=== PATIENT | female | born 1955 | race African-American/Black ===

== ENCOUNTER 2016-09-20 22:32 | Inpatient (IN) | payer MEDICARE, MEDICAID ==
[~2016-09-20] VITALS: Ht 180.3 cm; Wt 95.3 kg
[~2016-09-20 22:32] MED LIST: AFRIN15 ML NASAL; AMLODIPINE BESY10 MG ORAL; AMLODIPINE BESYL5 MG ORAL; ASPIR 8181 MG ORAL; BENAZEPRIL HCL40 MG ORAL; CALCIUM500 M3 PO; CATAPRES0.1 MG ORAL; CATAPRES0.2 MG ORAL; CIPROFLOXACIN500 M2 ORAL; GABAPENTIN300 MG ORAL; GLIMEPIRIDE1 MG ORAL; GLIMEPIRIDE2 MG ORAL; GLIMEPIRIDE4 MG ORAL; HYDROCODON-ACE1 EA13 ORAL; KEFLEX500 MG ORAL; LORATADINE10 M2 PO; METFORMIN HCL1000 M1 ORAL; NORCO 10/3251 EA ORAL; NORMODYNE100 MG ORAL; OXYCONTIN10 MG ORAL; OYSCO 500+D TA1 EAC1 PO; PANTOPRAZOLE SO20 MG ORAL; PERCOCET 10-321 EACH ORAL; PERCOCET 5-3251 EACH ORAL; PERCOCET1 TAB ORAL; PHENAZOPYRIDIN200 MG ORAL; SIMVASTATIN20 MG ORAL; SIMVASTATIN40 MG ORAL; SOMA350 MG PO; VALIUM5 MG ORAL; ZOFRAN ODT4 MG ORAL
[2016-09-20 22:48] VITALS: BP 163/79
[2016-09-21] VITALS (7 sets, daily range): BP systolic 100–134; BP diastolic 57–97
[2016-09-21 00:14] LABS: APPEARANCE,URINE CLEAR; KETONES,URINE NEGATIVE (NEGATIVE); LEUKOCYTE ESTERASE ,URINE NEGATIVE (NEGATIVE); NITRITE,URINE NEGATIVE (NEGATIVE); PH,URINE 7 (4.5-8.0); PROTEIN,URINE NEGATIVE (NEGATIVE); UROBILINOGEN,URINE NORMAL MG/DL (0.0-1.0)
[2016-09-21 00:15] LABS: BASOPHILS % (AUTO) 2.8 % (0.0-2.0); EOSINOPHILS % (AUTO) 1.7 % (0.0-3.0); LYMPHOCYTES % (AUTO) 47.1 % (20.0-45.0); MEAN CORPUSCULAR HEMOGLOBIN 30.3 PG (27.0-31.0); MEAN CORPUSCULAR HGB CONC 31.7 G/DL (32.0-36.0); MEAN CORPUSCULAR VOLUME 95 FL (80-99); MONOCYTES % (AUTO) 12.7 % (1.0-10.0); NEUTROPHILS % (AUTO) 35.8 % (45.0-75.0); PLATELET COUNT 223 K/UL (150-450); RED BLOOD COUNT 3.69 M/UL (4.20-5.40); RED CELL DISTRIBUTION WIDTH 17.1 % (11.6-14.8); WHITE BLOOD COUNT 4.4 K/UL (4.8-10.8)
[2016-09-21] MEDS ORDERED: Morphine Sulfate 4mg/ml Inj IVP ONE (00:15)
[2016-09-21 00:30] LABS: TROPONIN I < 0.30 ng/mL (<=0.30)
[2016-09-21 00:34] LABS: ALANINE AMINOTRANSFERASE 51 U/L (3-33); ALBUMIN/GLOBULIN RATIO 1.2 (1.0-2.7); ANION GAP 15 (5-15); ASPARTATE AMINO TRANSFERASE 29 U/L (5-40); CALCIUM 9.1 mg/dL (8.6-10.2); CARBON DIOXIDE 25 mEQ/L (20-30); CHLORIDE 100 mEQ/L (98-107); CREATININE 0.9 mg/dL (0.5-0.9); GLOMERULAR FILTRATION RATE > 60 mL/min (>60); HEMOLYSIS 16; POTASSIUM 3.8 mEQ/L (3.4-4.9); SODIUM 140 mEQ/L (135-145); TOTAL PROTEIN 7.5 g/dL (6.6-8.7)
[2016-09-21 00:45] LABS: CKMB < 1.5 ng/mL (< 3.8)
--- NOTE | 2016-09-21 03:34 | Emergency Room Report ---
History of Present Illness General Chief Complaint: Hypertension Source: Patient Present Illness HPI 61-year-old female presents to ED for evaluation. Patient states her blood pressure is high she is complaining of shortness of breath. Denies any chest pain. No aggravating or relieving factors. States symptoms started earlier today. States her PMD is Dr. Burnett. Denies fevers or chills or cough. Initially noted a headache but denies any headache at this time. Denies sick contacts or recent travel. Denies any other associated symptoms Allergies: Coded Allergies: No Known Allergies (Unverified , 01/02/13) Patient History Past Medical History: DM, HTN Past Surgical History: none Pertinent Family History: none Social History: Denies: alcohol use, drug use, smoking Now: No Immunizations: UTD Reviewed Nursing Documentation: PMH: Agreed, PSxH: Agreed Nursing Documentation-PMH Past Medical History: No History, Except For Hx Cardiac Problems: Yes Hx Hypertension: Yes Hx Pacemaker: No Hx Asthma: No Hx COPD: No Hx Diabetes: Yes Hx Cancer: No Hx Gastrointestinal Problems: Yes Hx Neurological Problems: No Hx Cerebrovascular Accident: No Hx Seizures: No Hx Vertigo: Yes Hx Dizziness: Yes Hx Syncope: Yes Hx Headaches: Yes Hx Numbness: Yes Hx Weakness: Yes Hx Fatigue: Yes Review of Systems All Other Systems: negative except mentioned in HPI Physical Exam Vital Signs Date Time Temp Pulse Resp B/P Pulse Ox O2 Delivery O2 Flow Rate FiO2 09/20/16 22:37 98.2 91 15 163/79 98 Room Air Sp02 EP Interpretation: reviewed, normal General Appearance: no apparent distress, alert, GCS 15, non-toxic Head: normocephalic Eyes: bilateral eye PERRL, bilateral eye normal inspection ENT: normal ENT inspection Neck: normal inspection Respiratory: chest non-tender, normal breath sounds, crackles, speaking full sentences Cardiovascular #1: regular rate, rhythm, no edema Gastrointestinal: normal bowel sounds, non tender, soft, non-distended, no guarding, no rebound Rectal: deferred Genitourinary: no CVA tenderness Musculoskeletal: normal inspection Neurologic: alert, oriented x3, responsive, motor strength/tone normal, sensory intact, speech normal Psychiatric: normal inspection Skin: normal inspection Lymphatic: normal inspection Medical Decision Making Diagnostic Impression: Primary Impression: Hypertensive urgency Additional Impressions: Pancreatic mass Pleural effusion ER Course Hospital Course 61-year-old female presents to ED complaining of shortness of breath, elevated BP Differential diagnoses include: TN/unstable angina, contusion, muscle strain, PTX, rib fracture Clinical course Patient placed on stretcher. on concrete floor installer. After initial history and physical I ordered labs, EKG, chest x-ray labs reviewed- no leukocytosis, hb/hct stable, electrolytes ok, trop negative Chest x-ray- no acute process discussed case with PMD Dr Burnett; patient has history of malignancy - need to r/ o PE bilateral duplex - no DVT CTA Chest - bilateral pleural effusions, no PE, pancreatic mass noted on reassessment BP imrproved Case discussed with Dr. Burnett and he agreed to accept the patient to his service for further care and support I. I feel this is a highly complex case requiring extensive working including EKG/Rhythm strip, Xray/CT/US, Blood/urine lab work, repeat exams while in ED, and administration of strong opiates/narcotics for pain control, admission to hospital or close patient follow up. Diagnosis - hypertensive urgency, pancreatic mass, pleural effusion admitted to telemetry in serious condition Labs Test 09/20/16 23:40 09/20/16 23:50 White Blood Count 4.4 K/UL (4.8-10.8) Red Blood Count 3.69 M/UL (4.20-5.40) Hemoglobin 11.2 G/DL (12.0-16.0) Hematocrit 35.2 % (37.0-47.0) Mean Corpuscular Volume 95 FL (80-99) Mean Corpuscular Hemoglobin 30.3 PG (27.0-31.0) Mean Corpuscular Hemoglobin Concent 31.7 G/DL (32.0-36.0) Red Cell Distribution Width 17.1 % (11.6-14.8) Platelet Count 223 K/UL (150-450) Mean Platelet Volume 7.0 FL (6.5-10.1) Neutrophils (%) (Auto) 35.8 % (45.0-75.0) Lymphocytes (%) (Auto) 47.1 % (20.0-45.0) Monocytes (%) (Auto) 12.7 % (1.0-10.0) Eosinophils (%) (Auto) 1.7 % (0.0-3.0) Basophils (%) (Auto) 2.8 % (0.0-2.0) Sodium Level 140 mEQ/L (135-145) Potassium Level 3.8 mEQ/L (3.4-4.9) Chloride Level 100 mEQ/L (98-107) Carbon Dioxide Level 25 mEQ/L (20-30) Anion Gap 15 (5-15) Blood Urea Nitrogen 13 mg/dL (7-23) Creatinine 0.9 mg/dL (0.5-0.9) Estimat Glomerular Filtration Rate > 60 mL/min (>60) Glucose Level 162 mg/dL (74-106) Lactic Acid Level 1.40 mmol/L (0.66-2.22) Calcium Level 9.1 mg/dL (8.6-10.2) Total Bilirubin 0.4 mg/dL (0.0-1.2) Aspartate Amino Transf (AST/SGOT) 29 U/L (5-40) Alanine Aminotransferase (ALT/SGPT) 51 U/L (3-33) Alkaline Phosphatase 124 U/L (35-104) Total Creatine Kinase 94 U/L (26-140) Creatine Kinase MB < 1.5 ng/mL (< 3.8) Creatine Kinase MB Relative Index Troponin I < 0.30 ng/mL (<=0.30) Pro-B-Type Natriuretic Peptide 81 pg/mL (0-125) Total Protein 7.5 g/dL (6.6-8.7) Albumin 4.1 g/dL (3.5-5.2) Globulin 3.4 g/dL Albumin/Globulin Ratio 1.2 (1.0-2.7) Urine Color Pale yellow Urine Appearance Clear Urine pH 7 (4.5-8.0) Urine Specific [place] 1.005 (1.005-1.035) Urine Protein Negative (NEGATIVE) Urine Glucose (UA) Negative (NEGATIVE) Urine Ketones Negative (NEGATIVE) Urine Occult Blood Negative (NEGATIVE) Urine Nitrite Negative (NEGATIVE) Urine Bilirubin Negative (NEGATIVE) Urine Urobilinogen Normal MG/DL (0.0-1.0) Urine Leukocyte Esterase Negative (NEGATIVE) EKG Diagnostic Results Rate: normal Rhythm: NSR ST Segments: no acute changes ASA given to the pt in ED: No Rhythm Strip Diag. Results EP Interpretation: yes Rhythm: NSR, no PVC's, no ectopy Chest X-Ray Diagnostic Results EP Interpretation: Yes Findings: no consolidation, no pneumothorax, no acute cardiopulmonary disease, other - L sided effusion Number of Views: 1 CT/MRI/US Diagnostic Results CT/MRI/US Diagnostic Results : Imaging Test Ordered: CTA Chest. duplex bilateral LE Impression CTA Chest - pancreatic mass. no PE. pleural effusion duplex b/l LE - no DVT Last Vital Signs Date Time Temp Pulse Resp B/P Pulse Ox O2 Delivery O2 Flow Rate FiO2 09/21/16 01:39 98.2 75 20 132/76 99 Room Air Status: improved Disposition: ADMITTED INPATIENT Condition: Serious Referrals: MARY BURNETT (PCP) ANNIE HARDIN M.D. Sep 21, 2016 03:34
[2016-09-21] MEDS ORDERED: Norco 10mg/325mg tab ORAL PRN (04:15)
[2016-09-21] MEDS ORDERED: Prochlorperazine 10mg tab ORAL PRN (04:15)
[2016-09-21] MEDS: Glimepiride 4mg tab ORAL SCH (06:33)
[2016-09-21] MEDS: NovoLOG Insulin Flexpen SUBQ SCH ×4 (06:35→20:33)
[2016-09-21] MEDS: metFORMIN 500mg tab ORAL SCH ×2 (09:01→17:36)
[2016-09-21] MEDS: Aspirin Baby 81mg ORAL SCH (09:02)
--- NOTE | 2016-09-21 09:02 | Diagnostic Imaging Report ---
Indication: Chest pain Technique: Continuous helical transaxial imaging of the chest was obtained from the thoracic inlet to the upper abdomen during rapid intravenous contrast administration. Arterial phase of enhancement obtained. Coronal 2-D reformats were also obtained and maximum intensity projection images in multiple planes. Study obtained in a Siemens sensation [address] Total Dose length Product (DLP): And [address] Dose Index Volume (CTDIvol): 18, 51, 32 mGy Comparison: None Findings: The pulmonary artery is reasonably opacified. There is no filling defect to indicate pulmonary embolus. Aorta is unremarkable. No abnormal fluid collections are seen within the chest. Slight heterogeneity of the left thyroid lobe likely due to a small underlying hypodense lesion noted. Correlation with ultrasound suggested. Partially imaged lower cervical anterior fusion hardware noted. Axilla. Clear. There is mild posterior basilar atelectasis present. There is no consolidation within the lungs. The visualized part of the upper abdomen demonstrates scarring of the upper pole the right kidney. Cholecystectomy clips are present. There is dilatation of the visualized portion of the main pancreatic duct. Please refer to previous workup which included the MRI 06/30/16. Impression: No evidence of pulmonary embolus. Mild posterior basilar atelectasis Dilated main pancreatic duct incompletely assessed on this study. Please refer to prior MRI workup. Status post cholecystectomy Scarring of the visualized portion of the right kidney. Heterogeneous thyroid gland with suggestion of a small lesion in the left thyroid lobe. Correlation with ultrasound suggested. Lower cervical spine fusion. [facility] has communicated the preliminary results to the Emergency Department. Their findings are largely concordant with this report. The CT scanner at [facility] is accredited by the [employer] and the scans are performed using protocols designed to limit radiation exposure to as low as reasonably achievable to attain images of sufficient resolution adequate for diagnostic evaluation.
[2016-09-21] MEDS: Calcium Carbonate 500mg w/Vit D 200iu tab ORAL SCH (09:03)
[2016-09-21] MEDS: Heparin 5000 units/ml inj SUBQ SCH ×2 (09:04→20:36)
[2016-09-21] MEDS: Morphine Sulfate 4mg/ml Inj IVP PRN (09:17)
--- NOTE | 2016-09-21 10:51 | Diagnostic Imaging Report ---
Indication: Shortness of breath Comparison: 08/17/14 A single view chest radiograph was obtained. Findings: No definite infiltrate or pulmonary vascular congestion identified. The heart is enlarged. The aorta is mildly enlarged consistent with atherosclerotic vascular disease. The bones are osteopenic. Impression: No acute disease
[2016-09-21 12:24] LABS: TROPONIN I < 0.30 ng/mL (<=0.30)
--- NOTE | 2016-09-21 14:13 | History and Physical ---
History of Present Illness General Date patient seen: Sep 21, 2016 Time patient seen: 14:10 Reason for Hospitalization: Hypertension Present Illness HPI thi sis an unfortuante femal eiwht gebmyy2p of hypertension panceraticv cancer on chemo whopresented with sob and hypertension] wa saddmmited fo rhypertensive emergency/urgency\no feev er no chills Allergies: Coded Allergies: No Known Allergies (Unverified , 01/02/13) Medication History Scheduled Amlodipine Besylate* (Amlodipine Besylate*), 5 MG ORAL DAILY, (Reported) Aspirin* (Aspir 81*), 81 MG ORAL DAILY, (Reported) Benazepril Hcl* (Benazepril Hcl*), 40 MG ORAL DAILY, (Reported) Calcium Carbonate/Vitamin D3 ([place] 500+D Tablet), 1 EACH PO DAILY, (Reported) Carisoprodol* (Soma*), 350 MG PO TID, (Reported) Glimepiride* (Glimepiride*), 4 MG ORAL DAILY, (Reported) Labetalol HCl (Labetalol HCl), 100 MG ORAL EVERY 12 HOURS, (Reported) Metformin Hcl* (Metformin Hcl*), 1,000 MG ORAL BID, (Reported) Pantoprazole (Pantoprazole), 20 MG ORAL EVERY 12 HOURS, (Reported) Simvastatin (Zocor), 40 MG ORAL BEDTIME, (Reported) Scheduled PRN Clonidine Hcl* (Catapres*), 0.1 MG ORAL Q6HR PRN for For High Blood Pressure, ( Reported) Hydrocodone Bit/Acetaminophen 10-325* (Hydrocodon-Acetaminophn 10-325*), 1 TAB ORAL Q6H PRN for For Pain, (Reported) Patient History Healthcare decision maker Resuscitation status Full Code Advanced Directive on File Past Medical/Surgical History Past Medical/Surgical History: (1) Pancreas cancer (2) Back pain (3) Hypertensive urgency Review of Systems Constitutional: Reports: no symptoms Eye: Reports: no symptoms Cardiovascular: Reports: no symptoms Musculoskeletal: Reports: other - polyartrhralgia Neurological: Reports: no symptoms Endocrine: Reports: no symptoms Physical Exam General Appearance: WD/WN HEENT: normocephalic, atraumatic Neck: other - nojvd Respiratory/Chest: lungs clear Cardiovascular/Chest: no JVD Abdomen: non tender, soft Extremities: other - no clubbing Last 24 Hour Vital Signs Date Time Temp Pulse Resp B/P Pulse Ox O2 Delivery O2 Flow Rate FiO2 09/21/16 11:36 97.2 69 18 122/78 100 Nasal Cannula 2.0 09/21/16 09:47 96.1 09/21/16 09:47 96.1 09/21/16 09:17 75 126/59 09/21/16 09:03 75 126/59 09/21/16 09:02 126/59 09/21/16 09:00 66 09/21/16 08:10 96.1 75 18 122/84 100 Nasal Cannula 2.0 09/21/16 04:30 97.3 73 20 134/97 100 Room Air 09/21/16 04:00 69 09/21/16 01:39 98.2 75 20 132/76 99 Room Air 09/21/16 01:00 75 20 132/76 99 Room Air 09/21/16 00:33 98.2 09/21/16 00:00 78 21 129/93 100 Room Air 09/20/16 22:48 91 15 Room Air 09/20/16 22:48 98.2 91 15 163/79 98 Room Air 09/20/16 22:37 98.2 91 15 163/79 98 Room Air Intake and Output 09/20/16 09/21/16 19:00 07:00 Intake Total 300 ml Balance 300 ml Intake Oral 300 ml # Voids 1 Laboratory Tests Test 09/20/16 23:40 09/20/16 23:50 09/21/16 12:00 White Blood Count 4.4 K/UL (4.8-10.8) L Red Blood Count 3.69 M/UL (4.20-5.40) L Hemoglobin 11.2 G/DL (12.0-16.0) L Hematocrit 35.2 % (37.0-47.0) L Mean Corpuscular Volume 95 FL (80-99) Mean Corpuscular Hemoglobin 30.3 PG (27.0-31.0) Mean Corpuscular Hemoglobin Concent 31.7 G/DL (32.0-36.0) L Red Cell Distribution Width 17.1 % (11.6-14.8) H Platelet Count 223 K/UL (150-450) Mean Platelet Volume 7.0 FL (6.5-10.1) Neutrophils (%) (Auto) 35.8 % (45.0-75.0) L Lymphocytes (%) (Auto) 47.1 % (20.0-45.0) H Monocytes (%) (Auto) 12.7 % (1.0-10.0) H Eosinophils (%) (Auto) 1.7 % (0.0-3.0) Basophils (%) (Auto) 2.8 % (0.0-2.0) H Sodium Level 140 mEQ/L (135-145) Potassium Level 3.8 mEQ/L (3.4-4.9) Chloride Level 100 mEQ/L (98-107) Carbon Dioxide Level 25 mEQ/L (20-30) Anion Gap 15 (5-15) Blood Urea Nitrogen 13 mg/dL (7-23) Creatinine 0.9 mg/dL (0.5-0.9) Estimat Glomerular Filtration Rate > 60 mL/min (>60) Glucose Level 162 mg/dL (74-106) H Lactic Acid Level 1.40 mmol/L (0.66-2.22) Calcium Level 9.1 mg/dL (8.6-10.2) Total Bilirubin 0.4 mg/dL (0.0-1.2) Aspartate Amino Transf (AST/SGOT) 29 U/L (5-40) Alanine Aminotransferase (ALT/SGPT) 51 U/L (3-33) H Alkaline Phosphatase 124 U/L (35-104) H Total Creatine Kinase 94 U/L (26-140) Creatine Kinase MB < 1.5 ng/mL (< 3.8) Creatine Kinase MB Relative Index Troponin I < 0.30 ng/mL (<=0.30) < 0.30 ng/mL (<=0.30) Pro-B-Type Natriuretic Peptide 81 pg/mL (0-125) Total Protein 7.5 g/dL (6.6-8.7) Albumin 4.1 g/dL (3.5-5.2) Globulin 3.4 g/dL Albumin/Globulin Ratio 1.2 (1.0-2.7) Urine Color Pale yellow Urine Appearance Clear Urine pH 7 (4.5-8.0) Urine Specific [place] 1.005 (1.005-1.035) Urine Protein Negative (NEGATIVE) Urine Glucose (UA) Negative (NEGATIVE) Urine Ketones Negative (NEGATIVE) Urine Occult Blood Negative (NEGATIVE) Urine Nitrite Negative (NEGATIVE) Urine Bilirubin Negative (NEGATIVE) Urine Urobilinogen Normal MG/DL (0.0-1.0) Urine Leukocyte Esterase Negative (NEGATIVE) Height (Feet): 5 Height (Inches): 11.00 Weight (Pounds): 210 Medications Current Medications Medications (Trade) Dose Ordered Sig/Mervin Route PRN Reason Start Time Stop Time Status Last Admin Dose Admin Acetaminophen (Tylenol) 650 mg Q6H PRN ORAL Mild Pain/Temp > 100.5 09/21/16 04:15 10/21/16 04:14 Acetaminophen/ Hydrocodone Bitart (Arley 10/325) 1 ea Q6H PRN ORAL moderate pain 4-6 09/21/16 04:15 09/28/16 04:14 Amlodipine Besylate (Norvasc) 5 mg DAILY ORAL 09/21/16 09:00 10/21/16 08:59 09/21/16 09:17 Aspirin (ASA) 81 mg DAILY ORAL 09/21/16 09:00 10/21/16 08:59 09/21/16 09:02 Atorvastatin Calcium (Lipitor) 20 mg BEDTIME ORAL 09/21/16 21:00 10/21/16 20:59 Benazepril HCl (Lotensin) 40 mg DAILY ORAL 09/21/16 09:00 10/21/16 08:59 09/21/16 09:02 Calcium Carbonate (OsCal D) 1 tab DAILY ORAL 09/21/16 09:00 10/21/16 08:59 09/21/16 09:03 Carisoprodol (Soma) 350 mg THREE TIMES A DAY ORAL 09/21/16 09:00 10/21/16 08:59 09/21/16 13:31 Clonidine HCl (Catapres) 0.1 mg Q6H PRN ORAL SBP greater than 160 09/21/16 04:15 10/21/16 04:14 Dextrose (Dextrose 50%) STAT PRN IV Hypoglycemia 09/21/16 04:15 10/21/16 04:14 Glimepiride (Amaryl) 4 mg ACBREAKFAST ORAL 09/21/16 06:30 10/21/16 06:29 09/21/16 06:33 Heparin Sodium (Porcine) (Heparin 5000 units/ml) 5,000 units EVERY 12 HOURS SUBQ 09/21/16 09:00 10/21/16 08:59 09/21/16 09:04 Insulin Aspart (NovoLOG) BEFORE MEALS AND HS SUBQ 09/21/16 06:30 10/21/16 06:29 09/21/16 11:33 Labetalol HCl (Normodyne) 100 mg Q12HR ORAL 09/21/16 09:00 10/21/16 08:59 09/21/16 09:03 Metformin HCl (Glucophage) 1,000 mg BID ORAL 09/21/16 09:00 10/21/16 08:59 09/21/16 09:01 Morphine Sulfate (Morphine Sulfate) 4 mg Q4H PRN IVP Severe Pain (Pain Scale 7-10) 09/21/16 04:15 09/28/16 04:14 09/21/16 09:17 Pantoprazole (Protonix) 40 mg EVERY 12 HOURS ORAL 09/21/16 09:00 10/21/16 08:59 09/21/16 09:05 Prochlorperazine (Compazine) 10 mg TID PRN ORAL Nausea & Vomiting 09/21/16 04:15 10/21/16 04:14 Assessment/Plan Status Narrative hypertensicve urgency better [pancreatica cancer anemia deg disc disease oa knee Assessment/Plan control bnp monitroor for 24 hours meds reviewed labd sdioscussed ahs a borderline diabetes will monnitor doing better MARY SERNA Sep 21, 2016 14:13
[2016-09-21] MEDS ORDERED: DuoNeb 0.5-3(2.5)mg/3ml neb HHN PRN (19:15)
--- NOTE | 2016-09-21 19:34 | Consultation ---
Consult Note Assessment/Plan [id number] MADISON BYRD M.D. Sep 21, 2016 19:34
[2016-09-21] MEDS ORDERED: guaiFENesin 100mg/5ml Liq ud ORAL PRN (19:45)
[2016-09-21] MEDS ORDERED: Atorvastatin 20mg tab ORAL SCH (21:00)
[2016-09-21] MEDS: guaiFENesin 600mg tab ORAL SCH (22:00)
[2016-09-22 00:10] VITALS: BP 105/71
[2016-09-22 04:17] VITALS: BP 116/72
--- NOTE | 2016-09-22 04:37 | Consultation ---
DATE OF CONSULTATION: 09/21/2016 PULMONARY CONSULTATION REFERRING PHYSICIAN: Mike Burnett M.D. REASON FOR CONSULTATION: Cough and shortness of breath. HISTORY OF PRESENT ILLNESS: The patient is a 61-year-old female with a history of locally advanced pancreatic cancer, hypertension, hyperlipidemia, diabetes, and GERD, who presented to the ER with 2 to 3 days of cough, congestion, rhinorrhea, and shortness of breath. In the ER, she had chest x-ray initially done, which was within normal limits. Subsequently, she had a duplex that was negative for PE and a CT of her chest, which showed some mild posterior basilar atelectasis, but no evidence of PE. She was initially hypoxemic. Now she feels markedly improved. In terms of her shortness of breath, she is now on room air. She was also hypotensive and was admitted for management of hypertensive urgency. PAST MEDICAL HISTORY: 1. Locally advanced pancreatic cancer, diagnosed via ERCP at [facility]. 2. Hypertension. 3. Hyperlipidemia. 4. Diabetes. 5. GERD. ALLERGIES: No known drug allergies. MEDICATIONS: Prior to admission, medications reviewed. SOCIAL HISTORY: No tobacco, alcohol, or drug use. FAMILY HISTORY: Noncontributory. REVIEW OF SYSTEMS: Negative other than history of present illness. PHYSICAL EXAMINATION: VITAL SIGNS: Temperature 97.6, pulse 74, blood pressure 100/57, respiratory rate 21, and saturating 98% on room air. GENERAL: She is a well-developed and well-nourished female, in no acute distress. Awake, alert, and oriented x3. HEENT: Normocephalic and atraumatic. Oropharynx is clear with moist mucous membranes. NECK: Supple without lymphadenopathy or JVD. CHEST: Clear to auscultation bilaterally with faint end-expiratory wheezing. HEART: Regular rate and rhythm. ABDOMEN: Soft, nontender, and nondistended. EXTREMITIES: No cyanosis, clubbing, or edema. ANCILLARY DATA: White count 4.4, hemoglobin 11.2, and platelet count 233,000. Sodium 140, potassium 3.8, chloride 100, bicarbonate 25, BUN 13, creatinine 0.9, and glucose 162. Lactic acid 1.4. ALT 51, AST 29, and alkaline phosphatase 124. Total bilirubin 0.4. CK 94. Troponin negative x2. Albumin 4.1. Urinalysis is negative. Chest x-ray is within normal limits. CTA, no pulmonary embolism. There is bilateral atelectasis. Duplex of the lower extremities, preliminarily negative. ASSESSMENT: The patient is a 61-year-old female with a history of locally advanced pancreatic cancer, hypertension, hyperlipidemia, diabetes, and gastroesophageal reflux disease presenting with shortness of breath and cough in the setting of respiratory symptoms likely a viral upper respiratory infection with possible superimposed bronchitis. She is fairly stable from a respiratory standpoint and has been ruled out for pulmonary embolism. PROBLEM LIST: 1. Recent respiratory illness likely viral URI. 2. Cough and shortness of breath secondary to above. 3. Hypertensive urgency. 4. Locally advanced pancreatic cancer. 5. Hypertension/hyperlipidemia/diabetes/GERD. TREATMENT PLAN: 1. Optimize pulmonary hygiene, mobilize as tolerated. 2. P.r.n. O2. 3. Mucinex and p.r.n. Robitussin. 4. P.r.n. bronchodilators. 5. Follow up sputum culture and respiratory panel. 6. Low threshold to start antibiotics. 7. DVT prophylaxis, heparin subcutaneous. 8. Strict aspiration precautions. 9. Management of blood pressure. Dr. Burnett, thank you for allowing me to assist in the care of your patient. If I may be of any assistance in the future, do not hesitate to ask. Luke Velasquez M.D. DR: GENO JOB#: [id number] CC:
[2016-09-22] MEDS: NovoLOG Insulin Flexpen SUBQ SCH ×3 (06:29→16:30)
[2016-09-22] MEDS: Glimepiride 4mg tab ORAL SCH (06:29)
[2016-09-22 07:48] VITALS: BP 125/75
[2016-09-22] MEDS ORDERED: Milk of Magnesia 30ml Ud ORAL PRN (08:30)
[2016-09-22] MEDS ORDERED: Docusate 100mg cap ORAL SCH (09:00)
[2016-09-22] MEDS: metFORMIN 500mg tab ORAL SCH ×2 (09:13→17:27)
[2016-09-22] MEDS: Aspirin Baby 81mg ORAL SCH (09:13)
[2016-09-22] MEDS: guaiFENesin 600mg tab ORAL SCH (09:15)
[2016-09-22] MEDS: Calcium Carbonate 500mg w/Vit D 200iu tab ORAL SCH (09:15)
[2016-09-22] MEDS: Heparin 5000 units/ml inj SUBQ SCH (09:21)
--- NOTE | 2016-09-22 09:30 | Pulmonology Progress Note ---
Assessment/Plan Assessment/Plan ASSESSMENT: The patient is a 61-year-old female with a history of locally advanced pancreatic cancer, hypertension, hyperlipidemia, diabetes, and gastroesophageal reflux disease presenting with shortness of breath and cough in the setting of respiratory symptoms likely a viral upper respiratory infection with possible superimposed bronchitis. She is fairly stable from a respiratory standpoint and has been ruled out for pulmonary embolism. PROBLEM LIST: 1. Recent respiratory illness likely viral URI. 2. Cough and shortness of breath secondary to above. 3. Hypertensive urgency. 4. Locally advanced pancreatic cancer (getting chemotherapy) 5. Hypertension/hyperlipidemia/diabetes/GERD. TREATMENT PLAN: 1. Optimize pulmonary hygiene, mobilize as tolerated. 2. P.r.n. O2. 3. Mucinex and p.r.n. Robitussin. 4. P.r.n. bronchodilators. 5. Follow up sputum culture and respiratory panel. 6. Low threshold to start antibiotics. 7. DVT prophylaxis, heparin subcutaneous. 8. Strict aspiration precautions. 9. Management of blood pressure. 10. Clear from a pulmonary standpoint for D/C home, can f/u with me in 1 week Subjective Allergies: Coded Allergies: No Known Allergies (Unverified , 01/02/13) Subjective Better Coughing less/mobilizing secretions No F/C, no SOB, no CP, BP better Objective Last 24 Hour Vital Signs Date Time Temp Pulse Resp B/P Pulse Ox O2 Delivery O2 Flow Rate FiO2 09/22/16 09:15 78 125/75 09/22/16 09:15 78 125/75 09/22/16 09:14 125/75 09/22/16 07:48 97.9 78 18 125/75 98 Room Air 09/22/16 04:17 98.1 74 20 116/72 100 Room Air 09/22/16 04:00 75 09/22/16 00:10 97.0 75 20 105/71 99 Room Air 09/22/16 00:00 71 09/21/16 20:32 74 112/83 09/21/16 20:00 97.6 74 19 112/83 99 Room Air 09/21/16 20:00 73 09/21/16 16:00 72 09/21/16 16:00 97.6 74 21 100/57 98 Room Air 09/21/16 14:30 97.2 09/21/16 12:00 75 09/21/16 11:36 97.2 69 18 122/78 100 Nasal Cannula 2.0 09/21/16 09:47 96.1 Intake and Output 09/21/16 09/22/16 19:00 07:00 Intake Total 490 ml 380 ml Balance 490 ml 380 ml Intake Oral 490 ml 380 ml # Voids 1 2 General Appearance: WD/WN, no acute distress HEENT: normocephalic, atraumatic, mucous membranes moist Respiratory/Chest: chest wall non-tender, rhonchi - scattered but decreased and clear with coughing Cardiovascular: normal peripheral pulses, normal rate, regular rhythm Abdomen: normal bowel sounds, soft, non tender, no organomegaly, non distended Extremities: no cyanosis, no clubbing, no edema Microbiology Date/Time Source Procedure Growth Status 09/20/16 23:50 Blood Blood Culture - Preliminary NO GROWTH AFTER 24 HOURS Resulted 09/20/16 23:45 Blood Blood Culture - Preliminary NO GROWTH AFTER 24 HOURS Resulted Laboratory Tests 09/21/16 12:00: Troponin I < 0.30 09/22/16 08:00: Troponin I [Pending] Current Medications Medications (Trade) Dose Ordered Sig/Mervin Route PRN Reason Start Time Stop Time Status Last Admin Dose Admin Acetaminophen (Tylenol) 650 mg Q6H PRN ORAL Mild Pain/Temp > 100.5 09/21/16 04:15 10/21/16 04:14 Acetaminophen/ Hydrocodone Bitart (Bradley 10/325) 1 ea Q6H PRN ORAL moderate pain 4-6 09/21/16 04:15 09/28/16 04:14 Albuterol/ Ipratropium (DuoNeb 0.5-3(2.5)mg/3ml) 3 ml Q4H PRN HHN Shortness of Breath 09/21/16 19:15 09/26/16 19:14 Amlodipine Besylate (Norvasc) 5 mg DAILY ORAL 09/21/16 09:00 10/21/16 08:59 09/22/16 09:15 Aspirin (ASA) 81 mg DAILY ORAL 09/21/16 09:00 10/21/16 08:59 09/22/16 09:13 Atorvastatin Calcium (Lipitor) 20 mg BEDTIME ORAL 09/21/16 21:00 10/21/16 20:59 09/21/16 20:32 Benazepril HCl (Lotensin) 40 mg DAILY ORAL 09/21/16 09:00 10/21/16 08:59 09/22/16 09:14 Calcium Carbonate (OsCal D) 1 tab DAILY ORAL 09/21/16 09:00 10/21/16 08:59 09/22/16 09:15 Carisoprodol (Soma) 350 mg THREE TIMES A DAY ORAL 09/21/16 09:00 10/21/16 08:59 09/22/16 09:14 Clonidine HCl (Catapres) 0.1 mg Q6H PRN ORAL SBP greater than 160 09/21/16 04:15 10/21/16 04:14 Dextrose (Dextrose 50%) STAT PRN IV Hypoglycemia 09/21/16 04:15 10/21/16 04:14 Docusate Sodium (Colace) 100 mg DAILY ORAL 09/22/16 09:00 10/22/16 08:59 09/22/16 09:15 Glimepiride (Amaryl) 4 mg ACBREAKFAST ORAL 09/21/16 06:30 10/21/16 06:29 09/22/16 06:29 Guaifenesin (Mucinex) 600 mg TWICE A DAY ORAL 09/21/16 21:00 10/21/16 20:59 09/22/16 09:15 Guaifenesin (Robitussin) 100 mg Q4H PRN ORAL For Cough 09/21/16 19:45 10/21/16 19:44 Heparin Sodium (Porcine) (Heparin 5000 units/ml) 5,000 units EVERY 12 HOURS SUBQ 09/21/16 09:00 10/21/16 08:59 09/22/16 09:21 Insulin Aspart (NovoLOG) BEFORE MEALS AND HS SUBQ 09/21/16 06:30 10/21/16 06:29 09/22/16 06:29 Labetalol HCl (Normodyne) 100 mg Q12HR ORAL 09/21/16 09:00 10/21/16 08:59 09/22/16 09:15 Magnesium Hydroxide (Mom) 30 ml DAILYPRN PRN ORAL Constipation 09/22/16 08:30 10/22/16 08:29 09/22/16 09:16 Metformin HCl (Glucophage) 1,000 mg BID ORAL 09/21/16 09:00 10/21/16 08:59 09/22/16 09:13 Morphine Sulfate (Morphine Sulfate) 4 mg Q4H PRN IVP Severe Pain (Pain Scale 7-10) 09/21/16 04:15 09/28/16 04:14 09/21/16 09:17 Pantoprazole (Protonix) 40 mg EVERY 12 HOURS ORAL 09/21/16 09:00 10/21/16 08:59 09/22/16 09:14 Prochlorperazine (Compazine) 10 mg TID PRN ORAL Nausea & Vomiting 09/21/16 04:15 10/21/16 04:14 MADISON BYRD M.D. Sep 22, 2016 09:30
[2016-09-22 09:40] LABS: TROPONIN I < 0.30 ng/mL (<=0.30)
[2016-09-22] MEDS: Morphine Sulfate 4mg/ml Inj IVP PRN (11:05)
[2016-09-22 11:23] VITALS: BP 125/85
[2016-09-22 16:00] VITALS: BP 129/85
--- NOTE | 2016-09-22 17:47 | Cardiology Report ---
APPROVED REPORT EKG Measurement Heart [id number] Normal sinus rhythm Normal ECG
--- NOTE | 2016-09-22 17:48 | Cardiology Report ---
APPROVED REPORT EKG Measurement Heart [id number] Normal sinus rhythm Normal ECG
--- NOTE | 2016-09-22 23:27 | Diagnostic Imaging Report ---
APPROVED REPORT CPT Code: 95875 Present Symptoms Shortness of breath RIGHT LEG: Venous imaging reveals a patent deep venous system. There is no evidence of thrombus within the femoral, popliteal or tibial segments. Doppler indicates normal spontaneous flow within these segments. LEFT LEG: Venous imaging reveals a patent deep venous system. There is no evidence of thrombus within the femoral, popliteal or tibial segments. Doppler indicates normal spontaneous within these segments.
--- NOTE | 2016-09-23 12:25 | Discharge Summary ---
Discharge Summary Hospital Course Date of Admission Sep 21, 2016 at 00:37 Date of Discharge Sep 22, 2016 at 18:38 Admitting Diagnosis hypertensive urgency Reason for Hospitalization: cough, SOB, uncontrolled BP HPI Betsy Jain is a 61 year old female who was admitted on Sep 21, 2016 at 00 :37 for cough, SOB, uncontrolled blood pressure 61-year-old female with history of pancreatic cancer on chemotherapy, presented to ED for evaluation. Patient reported her blood pressure being high she complained of cough and shortness of breath, symptoms started earlier the same day Denies any chest pain. No fevers, no chlls Initially noted a headache but denies headache later Denies sick contacts or recent travel. Consultations dr Velasquez - pulmo Hospital Course BP control with multiple regimen of anti HTN ( CCB, ARB, BB) and Clonidine prn ECG with NSR O2 prn pulmonary toilet claims supervisor followed CXR- no acute cardiopulmonary disease CTA -no evidence of PE venous Duplex BLE - negative antitussive as needed sputum cx negative, blood cx negative low threshold for antibiotics- no need hx of recent vital URI, cough and SOB likely 2 to recent vital URI - per claims supervisor ( given all negative imaging and cx results) BS management with oral antiglycemic and SS of insulin as needed DVT prophylaxis strict aspiration precautions pulmo cleared for dc BP stabilized with current regimen continue ASA, statin due to rapid and unexpected improvement in clinical condition patient was discharged home in 1 days fup with PMD, fup with onco/ chemo fup with pulmo in 1 week Discharge Medications Continued Medications: Amlodipine Besylate* (Amlodipine Besylate*) 5 Mg Tablet 5 MG ORAL DAILY, TAB Aspirin* (Aspir 81*) 81 Mg Tablet. 81 MG ORAL DAILY, TAB Benazepril Hcl* (Benazepril Hcl*) 40 Mg Tablet 40 MG ORAL DAILY, TAB Calcium Carbonate/Vitamin D3 ([place] 500+D Tablet) 1 Each Tablet 1 EACH PO DAILY, TAB Carisoprodol* (Soma*) 350 Mg Tablet 350 MG PO TID, TAB Clonidine Hcl* (Catapres*) 0.1 Mg Tablet 0.1 MG ORAL Q6HR PRN for For High Blood Pressure, TAB Glimepiride* (Glimepiride*) 4 Mg Tablet 4 MG ORAL DAILY, TAB Hydrocodone Bit/Acetaminophen 10-325* (Hydrocodon-Acetaminophn 10-325*) 1 Each Tablet 1 TAB ORAL Q6H PRN for For Pain, TAB Labetalol HCl (Labetalol HCl) 100 Mg Tab 100 MG ORAL EVERY 12 HOURS, TAB Metformin Hcl* (Metformin Hcl*) 1,000 Mg Tablet 1000 MG ORAL BID, TAB Pantoprazole (Pantoprazole) 20 Mg Tablet.dr 20 MG ORAL EVERY 12 HOURS, #10 TAB 0 Refills Simvastatin (Zocor) 40 Mg Tablet 40 MG ORAL BEDTIME, TAB Discharge Condition Upon Discharge: stable Discharge Disposition Patient was discharged to Home (01) Discharge Diagnoses: (1) Hypertensive urgency (2) URI, acute (3) DM (diabetes mellitus) (4) Pancreas cancer (5) Hyperlipidemia Discharge Instructions Discharge Instructions Special Instructions I have been assigned to complete a D/C Summary on this account. I was not involved in the patient management Celina Waters NP ([place]) Sep 23, 2016 12:25
== END 2016-09-22 18:38 | disposition home or self-care (01) | DRG 305 ==
LOC: EMR 23:16 → 2E 09-21 00:37 → EDBEDREQ 09-21 01:21 → EMR 09-21 03:42
DX: I16.0 Hypertensive urgency (principal); C25.9 Malignant neoplasm of pancreas, unspecified; E78.5 Hyperlipidemia, unspecified; E11.9 Type 2 diabetes mellitus without complications; K21.9 Gastro-esophageal reflux disease without esophagitis; J06.9 Acute upper respiratory infection, unspecified; Z79.84 Long term (current) use of oral hypoglycemic drugs; R09.02 Hypoxemia; Z79.899 Other long term (current) drug therapy
CPT/HCPCS: 36415; 71010; 71275; 80053; 81003; 82550; 82553; 82962; 83605; 83880; 84484; 85025; 87040; 87070; 87205; 93005; 93970; 94664; J1815

== ENCOUNTER 2018-05-29 14:45 | Emergency (ER) | payer MEDICARE, MEDICAID ==
[~2018-05-29] VITALS: Ht 177.8 cm; Wt 68.9 kg
[2018-05-29 15:03] VITALS: BP 125/73
[2018-05-29] MEDS ORDERED: Ketorolac 60mg Inj IM ONE (15:30)
--- NOTE | 2018-05-29 15:57 | Emergency Room Report ---
History of Present Illness General Chief Complaint: Lower Back Pain or Injury Source: Medical Record Present Illness HPI 63-year-old female with history of sciatic pain currently taking [place] and muscle relaxant prescribed by her PCP here complaining of worsening sciatic pain in her right side. Patient to [place] 3 hours ago and reports pain is continuous. She was started on patient patient and dispensed 120 pills of note , tingling numbness, new injury, chest pain, no other associated symptoms. Patient is requesting Dilaudid Allergies: Coded Allergies: No Known Allergies (Unverified , 01/02/13) Patient History Past Medical History: see triage record Past Surgical History: none Last Menstrual Period: unk Reviewed Nursing Documentation: PMH: Agreed; PSxH: Agreed Nursing Documentation-PMH Hx Cardiac Problems: Yes Hx Hypertension: Yes Hx Pacemaker: No Hx Asthma: No Hx COPD: No Hx Diabetes: Yes Hx Cancer: Yes - pancreatic CA in remission 06/21/2017 Hx Gastrointestinal Problems: Yes Hx Neurological Problems: No Hx Cerebrovascular Accident: No Hx Seizures: No Hx Vertigo: Yes Hx Dizziness: Yes Hx Syncope: Yes Hx Headaches: Yes Hx Numbness: Yes Hx Weakness: Yes Hx Fatigue: Yes Review of Systems All Other Systems: negative except mentioned in HPI Physical Exam Vital Signs Date Time Temp Pulse Resp B/P (MAP) Pulse Ox O2 Delivery O2 Flow Rate FiO2 05/29/18 14:56 98.9 69 16 125/73 99 Room Air 99.0 Sp02 EP Interpretation: reviewed, normal General Appearance: normal inspection, well appearing, no apparent distress, alert Head: normocephalic Eyes: bilateral eye normal inspection, bilateral eye PERRL ENT: normal ENT inspection, normal pharynx, no angioedema Neck: normal inspection, full range of motion, supple Respiratory: normal inspection, no rhonchi, no wheezing Cardiovascular #1: normal inspection, no murmur Gastrointestinal: normal inspection, soft Rectal: deferred Genitourinary: deferred Musculoskeletal: back normal, tender - right hip Neurologic: normal inspection, alert, oriented x3 Psychiatric: normal inspection, judgement/insight normal Skin: normal inspection, normal color Lymphatic: normal inspection, no adenopathy Medical Decision Making PA Attestation all diagnoses and treatment plans are reviewed and discussed with my supervising physician Dr. Walker Diagnostic Impression: Primary Impression: Sciatic leg pain ER Course 63-year-old female with history of sciatic pain currently taking [place] and muscle relaxant prescribed by her PCP here complaining of worsening sciatic pain in her right side. Patient to [place] 3 hours ago and reports pain is continuous. She was started on patient patient and dispensed 120 pills of note , tingling numbness, new injury, chest pain, no other associated symptoms. Patient is requesting Dilaudid Ddx considered but are not limited to Sciatic pain,drug-seeking behavior Vital signs: are WNL, pt. is afebrile H&PE are most consistent with .sciatic pain and drug-seeking behavior ORDERS: Toradol 60 ED INTERVENTIONS: None required at this time. DISCHARGE: At this time pt. is stable for d/c to home. Will provide printed patient care instructions, and any necessary prescriptions. Care plan and follow up instructions have been discussed with the patient prior to discharge. patient to continue pain management for continuation of [place] and follow with PCP for further assessment of sciatic patient has been told that due to increased narcotic and daughter cannot be given at this point patient agrees Last Vital Signs Date Time Temp Pulse Resp B/P (MAP) Pulse Ox O2 Delivery O2 Flow Rate FiO2 05/29/18 15:31 99.0 05/29/18 15:03 69 16 125/73 99 Room Air Disposition: HOME, SELF-CARE Condition: Stable Patient Instructions: Sciatica, [id number] Additional Instructions: follow up primary care provider and pain management for assessment of sciatic pain avoid taking too many [place] patient to ask for more specific sciatic medication. Patient has been explained that due to taking many narcotics cannot be given Dilaudid Stanley Billy May 29, 2018 15:57
[2018-05-29 16:07] VITALS: BP 131/80
== END 2018-05-29 16:07 | disposition home or self-care (01) ==
LOC: EMR 15:45
DX: M54.31 Sciatica, right side (principal); I10 Essential (primary) hypertension; E11.9 Type 2 diabetes mellitus without complications; Z86.79 Personal history of other diseases of the circulatory system; Z85.07 Personal history of malignant neoplasm of pancreas
CPT/HCPCS: 96372; 99283